=== PATIENT | female | born 2000 | race Caucasian/White ===

== ENCOUNTER 2018-10-14 17:27 | Emergency (ER) | payer MEDICAID ==
[2018-10-14] MEDS: LORAZEPAM 0.5 MG TAB PO (18:44)
[2018-10-14] MEDS: ONDANSETRON (ODT) 4 MG TAB ODT (18:45)
== END 2018-10-14 19:57 | disposition home or self-care (01) ==
LOC: FTE 17:27
DX: R42 Dizziness and giddiness (principal)
CPT/HCPCS: 99283; Z7502